=== PATIENT | male | born 1985 | race Caucasian/White ===

== ENCOUNTER 2025-01-27 17:51 | Emergency (ER) | payer BC, MEDICAID ==
[2025-01-27] MEDS ORDERED: Sodium Chloride 0.9% 10 ML Syringe FLUSH PRN (17:59)
[2025-01-27] MEDS: methylPREDNISolone Sodium Succinate 125 MG/2 ML SDV IVPUSH ONE (18:21)
[2025-01-27] MEDS: Ketorolac 30 MG/ML SDV IVPUSH ONE (18:21)
== END 2025-01-27 19:17 | disposition home or self-care (01) ==
LOC: KA.ED 17:51
DX: S39.012A Strain of muscle, fascia and tendon of lower back, initial encounter (principal); Z79.899 Other long term (current) drug therapy; X50.0XXA Overexertion from strenuous movement or load, initial encounter; Y93.89 Activity, other specified
CPT/HCPCS: 72100; 96365; 96375; 99283-25; A9270-GY; J1885; J2800; J2919